=== PATIENT | female | born 1965 | race Asian ===

== ENCOUNTER 2021-07-17 19:49 | Emergency (ER) | payer SELFPAY ==
[~2021-07-17] VITALS: Ht 160 cm; Wt 75.0 kg
[2021-07-17 20:48] VITALS: BP 90/57
== END 2021-07-17 21:15 | disposition home or self-care (01) ==
LOC: ER 19:49
DX: F10.129 Alcohol abuse with intoxication, unspecified (principal); Y90.0 Blood alcohol level of less than 20 mg/100 ml
CPT/HCPCS: 99283